=== PATIENT | female | born 1945 | race Caucasian/White ===

== ENCOUNTER → 2018-08-02 07:53 | Outpatient (CLI) | payer MEDICARE, OTHER, SELFPAY ==
--- NOTE | 2018-08-02 | DI.US.S_ITS ---
PROCEDURE: US CAROTID DOPPLER BI INDICATIONS: SHORTNESS OF BREATH/SYNCOPE/DYSPNEA TECHNIQUE: Color and pulse Doppler interrogation was performed of both carotid systems, with image documentation and velocity measurements. COMPARISON: None. FINDINGS: Stenosis calculations are based on SRU (Society of Radiologists in Ultrasound) criteria. Right side: Brachial blood pressure: 166/85 mm Hg. Common carotid artery peak systolic velocity: 64 cm/sec. Internal carotid artery peak systolic velocity: 109 cm/sec. Internal carotid artery end diastolic velocity: 42 cm/sec. External carotid artery peak systolic velocity: 110 cm/sec. ICA/CCA peak systolic ratio: 1.7. Berman scale imaging description: Mild scattered plaque. Percent internal carotid artery stenosis: Less than 50% stenosis. Vertebral artery: Flow direction is antegrade. Left side: Brachial blood pressure: 149/88 mm Hg. Common carotid artery peak systolic velocity: 93 cm/sec. Internal carotid artery peak systolic velocity: 82 cm/sec. Internal carotid artery end diastolic velocity: 38 cm/sec. External carotid artery peak systolic velocity: 86 cm/sec. ICA/CCA peak systolic ratio: 0.9. Berman scale imaging description: Mild scattered plaque. Percent internal carotid artery stenosis: Less than 50%. Vertebral artery: Flow direction is antegrade. IMPRESSION: Less than 50% bilateral internal carotid artery stenosis. Dictated by: Korey Torres RRA Interpreted: Taylor Mercado MD on 08/02/2018 at 8:43 Approved by: Taylor Mercado MD, PhD on 08/02/2018 at 9:26
--- NOTE | 2018-08-02 | DI.ECHO.S_ITS ---
[facility] +---------+ : : [address] : [place] : : : : [id number] : : : : Phone: [phone] Echocardiogram Report + + :Name: MAGY CLAROS Study Date: 08/02/2018 Height: 64 in : :[facility] Exam Location: IS Weight: 187 lb : : Gender: Female BSA: 1.9 m2 : :: 1945 Age: 72 yrs BP: 149/80 mmHg: :Reason For Study: SOB,SYNCOPE, DYSPNEA : : Performed By: Danielle Mead : :Referring: JAYA MKCEON : + + Interpretation Summary Normal sinus rhythm. Normal LV size; mild concentric LVH; normal wall motion and LV systolic function. EF is 55-60%. Stage I diastolic dysfunction. Mild LA enlargement; otherwise normal chamber sizes. Aortic sclerosis without stenosis. Otherwise no signifcant valvular abnormalities. No prior study available for comparison. Procedure: A two-dimensional transthoracic echocardiogram with color flow and Doppler was performed. The study quality was technically adequate. There is no prior echocardiogram noted for this patient. The patient was in normal sinus rhythm during the exam. Left Ventricle: There is mild concentric left ventricular hypertrophy. The left ventricle is normal in size. The left ventricular ejection fraction is normal. The ejection fraction is estimated to be 55-60%. There are no focal wall motion abnormalities. Diastolic parameters suggest a relaxation abnormality of the left ventricle, consistent with probable normal filling pressures. Right Ventricle: The right ventricle is normal in size and function. Atria: The left atrium is mildly dilated. The right atrium is normal in size. There is no Doppler evidence for an interatrial shunt. Mitral Valve: The mitral valve leaflets appear mildly thickened, but open well. There is mild mitral regurgitation. Aortic Valve: The aortic valve is trileaflet. There is mild aortic valve sclerosis. The aortic valve opens well. No aortic regurgitation is present. Tricuspid Valve: The tricuspid valve is normal. There is mild tricuspid regurgitation. The right ventricular systolic pressure is estimated to be at least 22 mmHg based on an estimated right atrial pressure of 3 mm Hg. Pulmonic Valve: The pulmonic valve is not well visualized. There is a trace or physiologic amount of pulmonic regurgitation. Great Vessels: The aortic root is normal size. The ascending aorta is at the upper limits of normal in size. The aortic arch is at the upper limits of normal in size. The pulmonary is not well visualized. The IVC is of normal diameter and collapses greater than 50% with a sniff. This suggests a low right atrial pressure of 3 mm Hg. Pericardium/ Pleura There is no pericardial effusion. There is no pleural effusion. MMode/2D Measurements & Calculations LVIDd: 4.3 cm LVOT diam: 1.9 cm LVIDs: 2.8 cm Ao root diam: 3.4 cm FS: 36.6 % asc Aorta Diam: 3.6 cm EPSS: 0.42 cm Ao Arch Diam (Prox Trans): 3.2 cm IVSd: 1.2 cm LVPWd: 1.2 cm LV hutson. diameter/BSA (cm/m^2): 2.3 LV sys. diameter/BSA (cm/m^2): 1.4 LA A2 area: 20.8 cm2 RA long axis: 4.7 cm LA A4 area: 24.7 cm2 RA area: 11.1 cm2 LA length (vol): 6.0 cm RA vol: 21.9 ml LA vol: 72.5 ml RA : 11.5 ml/m2 LA vol index: 38.2 ml/m2 IVC diam: 1.8 cm RVD1 (basal): 3.2 cm RVD2 (mid): 1.9 cm Doppler Measurements & Calculations Ao V2 max: 140.7 cm/sec LVOT Max Juan David: 103.1 cm/sec Ao V2 mean: 87.7 cm/sec LV V1 max P.3 mmHg Ao max P.9 mmHg LV V1 VTI: 22.8 cm Ao mean P.6 mmHg LETY(I,D): 2.2 cm2 Ao V2 VTI: 29.7 cm LETY(V,D): 2.1 cm2 sev ratio: 0.77 LETY indexed to BSA (cm^2/m^2): 1.2 MV E max juan david: 58.2 cm/sec TR max juan david: 215.1 cm/sec MV A max juan david: 86.2 cm/sec TR max P.5 mmHg MV E/A: 0.68 PA V2 max: 71.5 cm/sec Med Peak E' Juan David: 5.4 cm/sec PA V2 mean: 48.5 cm/sec E/E' med: 10.8 PA mean P.1 mmHg Lat Peak E' Juan David: 6.1 cm/sec PA pr(Accel): 31.6 mmHg E/E' lat: 9.5 E/e' average: 10.2 MV dec time: 0.28 sec MV P1/2t: 77.5 msec MV 2t max juan david: 55.8 cm/sec MVA(t): 2.8 cm2 Reading Physician:07:44 PM
== END ==
PROVIDERS: PCP Internal Medicine; Visit Provider Internal Medicine
DX: I08.1 Rheumatic disorders of both mitral and tricuspid valves (principal); I65.23 Occlusion and stenosis of bilateral carotid arteries; R06.02 Shortness of breath; R55 Syncope and collapse; R06.00 Dyspnea, unspecified
CPT/HCPCS: 93306; 93880

== ENCOUNTER → 2018-08-20 08:17 | Outpatient (CLI) | payer MEDICARE, OTHER, SELFPAY ==
--- NOTE | 2018-08-20 08:20 | DI.NM.S_ITS ---
PROCEDURE: NM BEST PERF SPECT R&S PHARM Rest and pharmacological stress myocardial perfusion SPECT with gated imaging and ejection fraction RADIOPHARMACEUTICAL: 22.8 mCi Tc-99m tetrafosmin IV at rest and 26.5 mCi Tc-99m tetrafosmin IV at peak effect of pharmacological stress. Fix-ljd-lcfotdfu was performed. INDICATIONS: SHORTNESS OF BREATH WITH EXERTION/SYNCOPE TECHNIQUE: Radiopharmaceutical was injected at peak stress test, and also at rest. SPECT images were obtained. SPECT myocardial perfusion images were displayed in short axis, horizontal long axis, and vertical long axis views. Gated images were reviewed using Interhyp software. COMPARISON: None. CARDIAC STRESS: A pharmacologic stress test was performed under the supervision of an attending staff, using an infusion of lexiscan 0.4mg IV X1. Hemodynamic data: There is normal blood pressure and heart rate response to pharmacologic stress. Symptoms: The patient denied anginal chest pain. Aminophylline: none EKG: Resting ECG shows sinus rhythm with no significant ST-T changes. No diagnostic changes of ischemia with lexiscan; frequent PVCs present. FINDINGS: Raw data: There is good myocardial uptake of radiotracer. No significant motion artifacts. Xtiz-ks-iwpkt ratio is 0.29 (normal is less than 0.38 for tetrafosmin tracer). Left ventricle function: Gated images demonstrate normal left ventricular wall thickening. No segmental wall motion abnormalities. No transient ischemic dilation; TID is 0.97 (normal less than 1.3). Left ventricle resting end diastolic volume is 86 mL. Left ventricle stress ejection fraction is 83%; normal range is above 45%. Myocardial perfusion: There is normal distribution of activity in the right and left ventricular myocardium. No fixed or reversible perfusion defects. IMPRESSION: low risk, normal pharmaceutical nuclear stress test 1) Normal perfusion images, with no evidence of ischemia or infarction. 2) Normal left ventricular size, wall motion, and systolic function (EF post stress 83%). 3) No ECG evidence of ischemia. Frequent PVCs during the study. 4) No angina during the study. 5) No prior nuclear stress test available for comparison. Dictated by: Jarred Aparicio MD on 08/24/2018 at 12:59 Approved by: Jarred Aparicio MD on 08/24/2018 at 13:02
--- NOTE | 2018-08-20 09:26 | P.PCN_ITS ---
Cardiac Stress Test Report Referral & Results Date Patient Seen: 08/20/18 Requesting provider: Donnie Graham Indication: Shortness of breath Rest ECG: Unremarkable Procedure Note: After both written and verbal informed consent the patient had an IV started by the diagnostic imaging RN and then was hooked up to the treadmill monitoring system. The patient was placed on the treadmill at 1 mile an hour with no elevation and was then injected with the Ro scan material. The Cardiolite was then immediately administered. The patient spent an additional 2-3 minutes on the treadmill before being returned to the [facility] in the supine position. The patient had a normal response to all infused materials. Occasional PVCs were identified Impression: Dysrhythmias above, otherwise normal response team materials. Please see perfusion imaging report for details regarding possible ischemia Please note: Actual ECG tracings can be found in the PACS system.
== END ==
PROVIDERS: PCP Internal Medicine; Visit Provider Internal Medicine
DX: I49.3 Ventricular premature depolarization (principal); R06.02 Shortness of breath; R55 Syncope and collapse
CPT/HCPCS: 78452; 93016; 93017; 93018; A9502; J2785

== ENCOUNTER → 2020-07-11 09:30 | Outpatient (CLI) | payer MEDICARE, OTHER, SELFPAY ==
[2020-07-11 11:14] LABS: Alanine Aminotransferase 28 IU/L (<35); Albumin 4.5 g/dL (3.5-5.0); Albumin Globulin Ratio 1.6 (1.0-2.8); Alkaline Phosphatase 88 U/L (38-126); Aspartate Aminotransferase 32 IU/L (14-36); BUN Creatinine Ratio 23.8 (6-22); Bilirubin Total 0.5 mg/dL (0.2-1.3); Blood Urea Nitrogen 19 mg/dL (7-17); Calcium 9.8 mg/dL (8.4-10.2); Carbon Dioxide 27 mmol/L (22-32); Chloride 102 mmol/L (98-107); Estimated Glomerular Filt Rate > 60.0 mL/min (>60); Globulin 2.8 g/dL (1.7-4.1); Glucose 113 mg/dL (80-110); HEMOLYSIS < 15 (0-50); Sodium 138 mmol/L (137-145); Total Protein 7.3 g/dL (6.3-8.2)
[2020-07-11 11:15] LABS: Creatinine Urine Random 48.7 mg/dL
[2020-07-11 11:20] LABS: Microalbumi Creatinin Ratio Ur 18.4 ug/mg CR (<30); Microalbumin Urine Random 0.9 mg/dL (0-1.6)
[2020-07-11 11:31] LABS: Vitamin D 25 Hydroxy (D3) 92.3 ng/mL (30.0-100.0)
[2020-07-12 16:48] LABS: Hep C Virus Ab w/Reflex Quant NEGATIVE s/c (NEGATIVE)
== END ==
PROVIDERS: PCP Family Medicine; Referring Provider Family Medicine; Visit Provider Family Medicine
DX: Z11.59 Encounter for screening for other viral diseases (principal); I10 Essential (primary) hypertension
CPT/HCPCS: 36415; 80053; 82043; 82306; 82570; 86803

== ENCOUNTER → 2020-12-04 13:53 | Outpatient (CLI) | payer MEDICARE, OTHER, SELFPAY ==
--- NOTE | 2020-12-04 14:00 | DI.RAD.S_ITS ---
PROCEDURE: XR FOOT LT 2V INDICATIONS: BI FOOT SWELLING/BURSITIS TECHNIQUE: 2 views of the foot were acquired. COMPARISON: None. FINDINGS: Bones: No fractures or dislocations. No suspicious bony lesions. Mild 1st MTP and diffuse interphalangeal joint space narrowing with periarticular osteophyte formation. Soft tissues: No tibiotalar joint effusion. Achilles tendon appears normal. IMPRESSION: Mild 1st MTP and diffuse interphalangeal joint degeneration. Although no bony erosions are identified, plain film radiography is relatively insensitive in the acute phases of osteomyelitis and may not demonstrate radiographic changes for 15 days. If acute osteomyelitis is of clinical concern, nuclear medicine regional bone scan or MRI is recommended. Dictated by: Korey Torres [facility] Interpreted: Kary Alvarado MD on 12/04/2020 at 16:49 Approved by: Kary Alvarado M.D. on 12/04/2020 at 17:06
--- NOTE | 2020-12-04 14:00 | DI.RAD.S_ITS ---
PROCEDURE: XR FOOT RT 2V INDICATIONS: BI FOOT SWELLING/BURSITIS TECHNIQUE: 2 views of the foot were acquired. COMPARISON: None. FINDINGS: Bones: No fractures or dislocations. No suspicious bony lesions. Mild 1st MTP and diffuse interphalangeal joint space narrowing with periarticular osteophyte formation. Soft tissues: No tibiotalar joint effusion. Achilles tendon appears normal. IMPRESSION: 1. Mild 1st MTP and diffuse interphalangeal joint degeneration. 2 point Although no bony erosions are identified, plain film radiography is relatively insensitive in the acute phases of osteomyelitis and may not demonstrate radiographic changes for 15 days. If acute osteomyelitis is of clinical concern, nuclear medicine regional bone scan or MRI is recommended. Dictated by: Korey Torres [facility] Interpreted: Kary Alvarado MD on 12/04/2020 at 16:50 Approved by: Kary Alvarado M.D. on 12/04/2020 at 17:06
== END ==
PROVIDERS: PCP Physician Assistant; Referring Provider Physician Assistant; Visit Provider Physician Assistant
DX: M71.5 Other bursitis, not elsewhere classified (principal); R22.43 Localized swelling, mass and lump, lower limb, bilateral; M19.072 Primary osteoarthritis, left ankle and foot; M19.071 Primary osteoarthritis, right ankle and foot
CPT/HCPCS: 73620

== ENCOUNTER → 2020-12-28 11:51 | Outpatient (CLI) | payer MEDICARE, OTHER, SELFPAY ==
[2020-12-28] MEDS: COVID-19 VACC, Ad26(JANSSEN)/PF 0.5 ML IM (11:58)
== END ==
PROVIDERS: PCP Physician Assistant; Visit Provider Internal Medicine
DX: Z23 Encounter for immunization (principal)
CPT/HCPCS: 0031A; 91303

== ENCOUNTER → 2021-12-05 14:56 | Outpatient (ROUT) | payer MEDICARE, OTHER, SELFPAY ==
[2021-12-05 15:09] LABS: Add Manual Diff / Slide Review NO; Basophils Absolute Auto 0 /uL (0-100); Basophils Percent Auto 0.5 % (0-2); Eosinophils Absolute Auto 100 /uL (0-450); Eosinophils Percent Auto 3.3 % (2-4); Hematocrit 40.9 % (36-46); Hemoglobin 13.5 g/dL (12.0-16.0); Lymphocytes Absolute Auto 1800 /uL (1100-4500); Lymphocytes Percent Auto 44.4 % (25-40); Mean Corpuscular HGB Conc 32.9 % (30-36); Mean Corpuscular Hemoglobin 27.7 PG (26-34); Monocytes Absolute Auto 200 /uL (0-900); Monocytes Percent Auto 5.5 % (3-14); Neutrophils Absolute Auto 1900 /uL (1500-7000); Neutrophils Percent Auto 46.3 % (50-75); Platelet Count 141 X10^3/uL (150-400); Red Blood Cell Count 4.86 X10^6/uL (4.0-5.2); Red Cell Distribution Width 15.2 % (11.6-14.8); White Blood Cell Count 4.1 X10^3/uL (4.5-11.0)
[2021-12-05 15:12] LABS: Hemoglobin A1C% w Est Avg Glu 5.8 % (4.0-6.0)
[2021-12-05 15:19] LABS: Alanine Aminotransferase 25 IU/L (<35); Albumin 4.7 g/dL (3.5-5.0); Albumin Globulin Ratio 1.8 (1.0-2.8); Alkaline Phosphatase 62 U/L (38-126); Aspartate Aminotransferase 38 IU/L (14-36); BUN Creatinine Ratio 31.1 (6-22); Bilirubin Total 0.6 mg/dL (0.2-1.3); Blood Urea Nitrogen 19 mg/dL (7-17); Calcium 10.1 mg/dL (8.4-10.2); Carbon Dioxide 28 mmol/L (22-32); Chloride 104 mmol/L (98-107); Cholesterol 211 mg/dL (140-199); Estimated Glomerular Filt Rate > 60.0 mL/min (>60); Globulin 2.6 g/dL (1.7-4.1); Glucose 113 mg/dL (80-110); HDL Cholesterol 32 mg/dL (40-60); HEMOLYSIS 31 (0-50); LDL Cholesterol Calculated 143 mg/dL (<100); Potassium 4.4 mmol/L (3.4-5.1); Sodium 139 mmol/L (137-145); Total Protein 7.3 g/dL (6.3-8.2); Triglycerides 178 mg/dL (35-150); Uric Acid 6.3 mg/dL (2.5-6.2)
[2021-12-05 15:35] LABS: Vitamin D 25 Hydroxy (D3) 83.6 ng/mL (30.0-100.0)
[2021-12-05 15:49] LABS: Thyroid Stimulating Hormone 1.74 uIU/mL (0.47-4.68)
== END ==
PROVIDERS: PCP Physician Assistant; Visit Provider Physician Assistant
DX: E11.9 Type 2 diabetes mellitus without complications (principal); I10 Essential (primary) hypertension; M10.00 Idiopathic gout, unspecified site; E78.5 Hyperlipidemia, unspecified; R53.83 Other fatigue; E03.9 Hypothyroidism, unspecified; E55.9 Vitamin D deficiency, unspecified
CPT/HCPCS: 80053; 80061; 82306; 83036; 84443; 84550; 85025

== ENCOUNTER → 2021-12-10 11:19 | Outpatient (CLI) | payer MEDICARE, OTHER, SELFPAY ==
--- NOTE | 2021-12-10 | DI.MG.S_ITS ---
BILATERAL DIGITAL SCREENING MAMMOGRAM 3D/2D WITH CAD: 12/10/2021 CLINICAL: Routine screening. Family history of breast cancer. Comparison is made to exams dated: 12/02/2016 mammogram, 09/20/2015 mammogram, and 08/18/2013 mammogram - [facility]. The tissue of both breasts is predominantly fatty. Current study was also evaluated with a Computer Aided Detection (CAD) system. No significant masses, calcifications, or other findings are seen in either breast. There has been no significant interval change. IMPRESSION: NEGATIVE There is no mammographic evidence of malignancy. A 1 year screening mammogram is recommended. This exam was interpreted at Station ID: [id number]. NOTE: For mammograms, a report in lay terms will be sent to the patient. Approximately 15% of breast malignancies will not be visualized mammographically. In the management of a palpable breast mass, a negative mammogram must not discourage biopsy of a clinically suspicious lesion. Electronically Signed By: Fredis jung/clifford:12/10/2021 13:34:18 copy to: THERESA SANTACRUZ letter sent: Normal Exam ACR BI-RADS Category 1: Negative [id number]
== END ==
PROVIDERS: PCP Physician Assistant; Referring Provider Physician Assistant; Visit Provider Physician Assistant
DX: Z12.31 Encounter for screening mammogram for malignant neoplasm of breast (principal); Z80.3 Family history of malignant neoplasm of breast
CPT/HCPCS: 77063; 77067

== ENCOUNTER → 2023-09-25 08:40 | Outpatient (CLI) | payer MEDICARE, OTHER, SELFPAY ==
[2023-09-25 09:58] LABS: Add Manual Diff / Slide Review NO; Basophils Absolute Auto 0 /uL (0-100); Basophils Percent Auto 0.5 % (0-2); Eosinophils Absolute Auto 0 /uL (0-450); Eosinophils Percent Auto 1.1 % (2-4); Hematocrit 37.5 % (36-46); Hemoglobin 12.4 g/dL (12.0-16.0); Lymphocytes Absolute Auto 1100 /uL (1100-4500); Lymphocytes Percent Auto 43.6 % (25-40); Mean Corpuscular Hemoglobin 25.9 PG (26-34); Mean Corpuscular Volume 78.5 fL (80-100); Monocytes Absolute Auto 100 /uL (0-900); Monocytes Percent Auto 4.8 % (3-14); Neutrophils Absolute Auto 1300 /uL (1500-7000); Platelet Count 92 X10^3/uL (150-400); Red Blood Cell Count 4.79 X10^6/uL (4.0-5.2); Red Cell Distribution Width 16.6 % (11.6-14.8); White Blood Cell Count 2.5 X10^3/uL (4.5-11.0)
[2023-09-25 10:24] LABS: Alanine Aminotransferase 23 IU/L (<35); Albumin 4.2 g/dL (3.5-5.0); Albumin Globulin Ratio 1.6 (1.0-2.8); Alkaline Phosphatase 90 U/L (38-126); Aspartate Aminotransferase 36 IU/L (14-36); BUN Creatinine Ratio 27.4 (6-22); Bilirubin Total 0.6 mg/dL (0.2-1.3); Blood Urea Nitrogen 20 mg/dL (7-17); Calcium 10.2 mg/dL (8.4-10.2); Carbon Dioxide 30 mmol/L (22-32); Chloride 102 mmol/L (98-107); Cholesterol 197 mg/dL (140-199); Estimated Glomerular Filt Rate > 60 mL/min (>60); Globulin 2.6 g/dL (1.7-4.1); Glucose 147 mg/dL (80-110); HDL Cholesterol 25 mg/dL (40-60); HEMOLYSIS < 15 (0-50); LDL Cholesterol Calculated 152 mg/dL (<100); Potassium 4.9 mmol/L (3.4-5.1); Sodium 140 mmol/L (137-145); Total Protein 6.8 g/dL (6.3-8.2); Triglycerides 102 mg/dL (35-150)
[2023-09-25 10:41] LABS: Vitamin D 25 Hydroxy (D3) 102 ng/mL (30.0-100.0)
[2023-09-25 10:54] LABS: Thyroid Stimulating Hormone 2.37 uIU/mL (0.47-4.68)
== END ==
PROVIDERS: PCP Student in an Organized Health Care Education/Training Program; Referring Provider Student in an Organized Health Care Education/Training Program; Visit Provider Student in an Organized Health Care Education/Training Program
DX: I10 Essential (primary) hypertension (principal); E55.9 Vitamin D deficiency, unspecified; E03.9 Hypothyroidism, unspecified; E78.5 Hyperlipidemia, unspecified
CPT/HCPCS: 36415; 80053; 80061; 82306; 84443; 85025

== ENCOUNTER → 2024-07-11 16:15 | Outpatient (CLI) | payer MEDICARE, OTHER, SELFPAY ==
--- NOTE | 2024-07-11 16:18 | DI.RAD.S_ITS ---
PROCEDURE: XR HAND RT 2V INDICATIONS: PAIN SWELLING IN HANDS TECHNIQUE: 2 views of the hand acquired. COMPARISON: None. FINDINGS: Bones: No acute fractures or dislocations. Carpal bones are normally aligned. No suspicious bony lesions. Generalized osteopenia. Multifocal degenerative changes are seen in the interphalangeal joints of the fingers and at the 1st carpometacarpal joint, triscaphe joint, and radiocarpal articulations. Soft tissues: No suspicious soft tissue calcifications. No focal nodular soft tissue swelling. IMPRESSION: Moderate to severe osteoarthrosis, most notably at the 1st carpometacarpal joint. Approved by: Demetrio Hodgson M.D. on 07/11/2024 at 21:24
--- NOTE | 2024-07-11 16:18 | DI.RAD.S_ITS ---
PROCEDURE: XR HAND LT 2V INDICATIONS: PAIN SWELLING IN HANDS TECHNIQUE: 2 views of the hand acquired. COMPARISON: None. FINDINGS: Bones: No acute fractures or dislocations. Carpal bones are normally aligned. No suspicious bony lesions. Generalized osteopenia. Multifocal joint space narrowing throughout the interphalangeal joints of the fingers and at the 1st carpometacarpal, triscaphe, and radiocarpal joints. Findings are moderate to severe at the 1st carpometacarpal joint and multiple distal interphalangeal joints. Soft tissues: No suspicious soft tissue calcifications. No nodular soft tissue swelling identified. IMPRESSION: Moderate to severe osteoarthrosis most notably at the 1st carpometacarpal joint. Approved by: Demetrio Hodgson M.D. on 07/11/2024 at 21:23
== END ==
LOC: RAD 16:16
PROVIDERS: PCP Student in an Organized Health Care Education/Training Program; Referring Provider Student in an Organized Health Care Education/Training Program; Visit Provider Student in an Organized Health Care Education/Training Program
DX: M18.0 Bilateral primary osteoarthritis of first carpometacarpal joints (principal); M19.042 Primary osteoarthritis, left hand; M19.041 Primary osteoarthritis, right hand; M79.642 Pain in left hand; R22.32 Localized swelling, mass and lump, left upper limb
CPT/HCPCS: 73120

== ENCOUNTER → 2024-08-19 11:26 | Outpatient (CLI) | payer MEDICARE, OTHER, SELFPAY ==
--- NOTE | 2024-08-19 11:28 | DI.RAD.S_ITS ---
PROCEDURE: XR DEXA AXIAL SKELETON INDICATIONS: Age-related osteoporosis without current pathologi COMPARISON: None. FINDINGS: Lumbar Spine: Bone mineral density 0.938 g/cm2, T score -0.7. Please note that the L3 vertebral body T-score is -1.3. Left Hip: Bone mineral density 0.734 g/cm2, T score -1.7 Left Femoral Neck: Bone mineral density 0.623 g/cm2, T score -2.0 Right Hip: Bone mineral density 0.740 g/cm2, T score -1.7 Right Femoral Neck: Bone mineral density 0.630 g/cm2, T score -2.0 Fracture Risk Calculation (when applicable): 10-year fracture risk of a major osteoporotic fracture 29 percent and of a hip fracture 10 percent. (T score greater or equal to -1.0 to: NORMAL) (T score from -1.1 to -2.4: OSTEOPENIA) (T score less than or equal to -2.5: OSTEOPOROSIS) IMPRESSION: 1. Normal bone density of the lumbar spine, although the L3 vertebral body is osteopenic. 2. Osteopenia of the left hip and femoral neck. 3. Osteopenia of the right hip and femoral neck. Follow-up guidelines as follows: Osteoporosis: Consider a repeat DEXA and Vertebral Fracture Assessment (VFA) exam in 2 years or sooner if medically necessary, to reassess this patient's status. Osteopenia: Consider a repeat DEXA in 2-3 years to reassess this patient's status, or if there is a new clinical indication. Normal: Consider a repeat DEXA in 5 years or sooner, or if there is a new clinical indication. All treatment decisions require clinical judgment and consideration of individual patient factors, including patient preferences, comorbidities, previous drug use, risk factors not captured in the FRAX model (e.g., frailty, falls, vitamin D deficiency, increased bone turnover, interval significant decline in bone density ) and possible under- or over-estimation of fracture risk by FRAX. In addition, the NOF Guide recommends that FDA-approved medical therapies be considered in postmenopausal women and men age >= 50 years with a: * Hip or vertebral (clinical or morphometric) fracture * T-score of <=-2.5 at the spine or hip * Ten-year fracture probability by FRAX of >= 3% for hip fracture or >=20% for major osteoporotic fracture. People with diagnosed cases of osteoporosis or at high risk for fracture should have regular bone mineral density tests. For patients eligible for Medicare, routine testing is allowed once every 2 years. The testing frequency can be increased to one year for patients who have rapidly progressing disease, those who are receiving or discontinuing medical therapy to restore bone mass, or have additional risk factors. Dictated by: Jed Chakraborty M.D. on 08/19/2024 at 14:24 Approved by: Jed Chakraborty M.D. on 08/19/2024 at 14:27
--- NOTE | 2024-08-19 12:20 | EKG_ITS ---
[address] [address] Test Date: 2024-08-19 Pat Name: Nirali Beltre Department: [facility] Room: Gender: Female [employer]: ANNMARIE : 1945 Requested By: Order Number: [id number] Reading MD: Gilbert He Measurements Intervals [place] Rate: 70 P: 22 PA: 200 QRS: -1 QRSD: 86 T: 47 QT: 390 QTc: 421 Interpretive Statements Normal sinus rhythm Electronically Signed On 08-23-2024 18:48:53 PST by Gilbert He
== END ==
PROVIDERS: PCP Student in an Organized Health Care Education/Training Program; Referring Provider Student in an Organized Health Care Education/Training Program; Visit Provider Student in an Organized Health Care Education/Training Program
DX: M81.0 Age-related osteoporosis without current pathological fracture (principal); I35.0 Nonrheumatic aortic (valve) stenosis
CPT/HCPCS: 77080; 93005

== ENCOUNTER → 2024-09-23 09:19 | Outpatient (CLI) | payer MEDICARE, OTHER, SELFPAY ==
--- NOTE | 2024-09-23 09:23 | DI.ECHO.S_ITS ---
[facility]---------+ [facility] : : [address] : : [place] : : [id number] : : Phone: [phone] Echocardiogram Report + + :Name: MAGY CLAROS Study Date: 09/23/2024 Height: 63 in : :[facility] ReadingLocation: Weight: 161 lb : : Gender: Female BSA: 1.8 m2 : :: 1945 Age: 78 yrs BP: 158/70 mmHg: :Reason For Study: AORTIC VALVE STENOSIS : :Ordering Physician: MARTA TAY Performed By: Agusto Banuelos : :Referring: UNSPECIFIED : + + Interpretation Summary The ejection fraction is estimated to be 60-65%. Grade II diastolic dysfunction. The right ventricle is normal in size and function. The right ventricular systolic pressure is estimated to be at least 40 mmHg based on an estimated right atrial pressure of 3 mm Hg. The left atrium is mildly dilated. There is mild mitral regurgitation. There is mild tricuspid regurgitation. Procedure: A two-dimensional transthoracic echocardiogram with color flow and Doppler was performed. The study quality was technically good. Comparison is made with the echocardiogram of 08/02/2018. The patient was in normal sinus rhythm during the exam. Left Ventricle: The left ventricle is normal in size. There is normal left ventricular wall thickness. There is no ventricular septal defect visualized. The ejection fraction is estimated to be 60-65%. There are no focal wall motion abnormalities. Grade II diastolic dysfunction. Right Ventricle: The right ventricle is normal in size and function. Atria: The left atrium is mildly dilated. Right atrial size is normal. There is no Doppler evidence for an atrial septal defect. Mitral Valve: The mitral valve leaflets appear mildly thickened, but open well. The mitral valve leaflets appear to open well. There is mild mitral regurgitation. Aortic Valve: The aortic valve is trileaflet. The aortic valve opens well. There is mild aortic valve sclerosis. There is no hemodynamically significant valvular aortic stenosis. There is trace aortic regurgitation. Tricuspid Valve: The tricuspid valve is normal in structure and function. There is mild tricuspid regurgitation. The right ventricular systolic pressure is estimated to be at least 40 mmHg based on an estimated right atrial pressure of 3 mm Hg. Pulmonic Valve: The pulmonic valve is not well visualized. There is no pulmonic valvular regurgitation. Great Vessels: The aortic root is normal size. The dimensions of the ascending aorta are normal. The pulmonary artery is normal size. The IVC is of normal diameter and collapses greater than 50% with a sniff. This suggests a low right atrial pressure of 3 mm Hg. Pericardium/ Pleura There is no pericardial effusion. There is no pleural effusion. MMode/2D Measurements & Calculations LVIDd: 4.3 cm LVOT diam: 2.0 cm LVIDs: 3.0 cm Ao root diam: 3.2 cm FS: 30.7 % asc Aorta Diam: 3.6 cm EPSS: 0.52 cm Ao Arch Diam (Prox Trans): 2.5 cm IVSd: 0.99 cm LVPWd: 1.0 cm LV hutson. diameter/BSA (cm/m^2): 2.4 LV sys. diameter/BSA (cm/m^2): 1.7 LA A2 area: 18.3 cm2 RA long axis: 3.5 cm LA A4 area: 24.6 cm2 RA area: 7.6 cm2 LA length (vol): 5.5 cm RA vol: 14.4 ml LA vol: 69.0 ml RA : 8.1 ml/m2 LA vol index: 39.1 ml/m2 IVC diam: 1.6 cm RVD1 (basal): 3.2 cm RVD2 (mid): 2.7 cm TAPSE: 2.5 cm Doppler Measurements & Calculations Ao V2 max: 188.3 cm/sec LVOT Max Juan David: 117.7 cm/sec Ao V2 mean: 130.8 cm/sec LV V1 max P.5 mmHg Ao max P.2 mmHg LV V1 VTI: 26.2 cm Ao mean P.8 mmHg LETY(I,D): 1.8 cm2 Ao V2 VTI: 44.3 cm LETY(V,D): 1.9 cm2 sev ratio: 0.59 LETY indexed to BSA (cm^2/m^2): 1.0 MV E max juan david: 79.6 cm/sec TR max juan david: 306.4 cm/sec MV A max juan david: 101.5 cm/sec TR max P.6 mmHg MV E/A: 0.78 PA V2 max: 81.1 cm/sec Med Peak E' Juan David: 5.8 cm/sec PA V2 mean: 54.4 cm/sec E/E' med: 13.8 PA mean P.4 mmHg Lat Peak E' Juan David: 6.1 cm/sec PA pr(Accel): 34.5 mmHg E/E' lat: 13.2 E/e' average: 13.5 MV dec time: 0.25 sec SVLVOT): 80.7 ml Reading Physician:TRAVIS
== END ==
PROVIDERS: PCP Student in an Organized Health Care Education/Training Program; Referring Provider Student in an Organized Health Care Education/Training Program; Visit Provider Student in an Organized Health Care Education/Training Program
DX: I08.3 Combined rheumatic disorders of mitral, aortic and tricuspid valves (principal)
CPT/HCPCS: 93306

== ENCOUNTER → 2025-09-05 10:31 | Outpatient (CLI) | payer MEDICARE, OTHER, SELFPAY ==
[2025-09-05 11:07] LABS: Add Manual Diff / Slide Review NO; Hematocrit 32.0 % (36-46); Hemoglobin 10.5 g/dL (12.0-16.0); Lymphocytes Absolute Auto 1200 /uL (1100-4500); Mean Corpuscular HGB Conc 32.8 % (30-36); Mean Corpuscular Hemoglobin 23.8 PG (26-34); Mean Corpuscular Volume 72.6 fL (80-100); Platelet Count 86 X10^3/uL (150-400)
[2025-09-05 11:12] LABS: Appearance Urine UA CLEAR; Bilirubin Urine UA NEGATIVE (NEGATIVE); Color Urine UA YELLOW; Glucose Urine UA NEGATIVE (Negative); Ketones Urine UA NEGATIVE (NEGATIVE); Leukocyte Esterase Urine UA 1+ (NEGATIVE); Nitrite Urine UA POSITIVE (Negative); Occult Blood Urine UA NEGATIVE (Negative); Protein Urine UA 1+ (Negative); Specific Gravity Urine UA 1.015 (1.000-1.035); Urobilinogen Urine UA 0.2 E.U./dL (0.2)
[2025-09-05 11:17] LABS: pH Urine UA 5.5 (4.5-8.0)
[2025-09-05 11:24] LABS: Culture Indicated Urine Specimen Cultured
[2025-09-05 11:28] LABS: Hemoglobin A1C% w Est Avg Glu 6.8 % (4.0-6.0)
[2025-09-05 11:37] LABS: Cholesterol 177 mg/dL (140-199); HDL Cholesterol 17 mg/dL (40-60); Triglycerides 186 mg/dL (35-150)
[2025-09-05 12:06] LABS: TSH w/ Reflex to FT4 2.58 uIU/mL (0.47-4.68)
[2025-09-05 18:17] LABS: Alanine Aminotransferase 18 IU/L (<35); Albumin 4.3 g/dL (3.5-5.0); Albumin Globulin Ratio 1.8 (1.0-2.8); Alkaline Phosphatase 124 U/L (38-126); Blood Urea Nitrogen 28 mg/dL (7-17); Calcium 9.4 mg/dL (8.4-10.2); Carbon Dioxide 24 mmol/L (22-32); Chloride 105 mmol/L (98-107); Estimated Glomerular Filt Rate 58 mL/min (>60); Globulin 2.4 g/dL (1.7-4.1); Glucose 139 mg/dL (70-99); HEMOLYSIS < 15 (0-50); Potassium 4.1 mmol/L (3.4-5.1); Sodium 139 mmol/L (137-145); Total Protein 6.7 g/dL (6.3-8.2)
== END ==
PROVIDERS: PCP Student in an Organized Health Care Education/Training Program; Referring Provider Student in an Organized Health Care Education/Training Program; Visit Provider Student in an Organized Health Care Education/Training Program
DX: E03.9 Hypothyroidism, unspecified (principal); Z13.1 Encounter for screening for diabetes mellitus; E55.9 Vitamin D deficiency, unspecified; E78.5 Hyperlipidemia, unspecified; G35.D Multiple sclerosis, unspecified; G25.81 Restless legs syndrome; I10 Essential (primary) hypertension; M81.0 Age-related osteoporosis without current pathological fracture; I35.0 Nonrheumatic aortic (valve) stenosis; R01.1 Cardiac murmur, unspecified; R06.02 Shortness of breath
CPT/HCPCS: 36415; 80053; 80061; 81001; 82533; 83036; 84443; 85025; 87077; 87086

== ENCOUNTER → 2025-09-26 10:37 | Outpatient (CLI) | payer MEDICARE, OTHER, SELFPAY ==
[2025-09-26 12:04] LABS: Add Manual Diff / Slide Review NO; Hematocrit 31.6 % (36-46); Hemoglobin 10.4 g/dL (12.0-16.0); Lymphocytes Absolute Auto 900 /uL (1100-4500); Mean Corpuscular HGB Conc 33.0 % (30-36); Mean Corpuscular Hemoglobin 23.8 PG (26-34); Mean Corpuscular Volume 72.2 fL (80-100); Platelet Count 82 X10^3/uL (150-400)
== END ==
PROVIDERS: PCP Student in an Organized Health Care Education/Training Program; Referring Provider Student in an Organized Health Care Education/Training Program; Visit Provider Student in an Organized Health Care Education/Training Program
DX: D61.818 Other pancytopenia (principal); D72.829 Elevated white blood cell count, unspecified; F32.A Depression, unspecified; I10 Essential (primary) hypertension; I35.0 Nonrheumatic aortic (valve) stenosis; L97.509 Non-pressure chronic ulcer of other part of unspecified foot with unspecified severity; R01.1 Cardiac murmur, unspecified; R06.02 Shortness of breath
CPT/HCPCS: 36415; 85025

== ENCOUNTER 2025-09-26 15:33 | Emergency (ER) | payer MEDICARE, OTHER, SELFPAY ==
[2025-09-26 16:07] VITALS: BP 173/78; PULSE 88; RESP 16; TEMP 36.1; O2SAT 99; BMI 27.4
--- NOTE | 2025-09-26 16:17 | DI.RAD.S_ITS ---
PROCEDURE: XR CHEST 1V INDICATIONS: Chest Pain TECHNIQUE: One view of the chest was acquired. COMPARISON: None. FINDINGS: Surgical changes and devices: None. Lungs and pleura: Lungs are clear. No pleural effusions or pneumothorax. Mediastinum: Mediastinal contours appear normal. Heart size is normal. Bones and chest wall: No suspicious bony lesions. Overlying soft tissues appear unremarkable. IMPRESSION: No acute cardiopulmonary abnormality is seen. Dictated by: Doug Faye M.D. on 09/26/2025 at 18:37 Approved by: Doug Faye M.D. on 09/26/2025 at 18:38
[2025-09-26 17:21] LABS: Alanine Aminotransferase 17 IU/L (<35); Albumin 4.4 g/dL (3.5-5.0); Albumin Globulin Ratio 1.6 (1.0-2.8); Alkaline Phosphatase 101 U/L (38-126); Blood Urea Nitrogen 17 mg/dL (7-17); Calcium 9.5 mg/dL (8.4-10.2); Carbon Dioxide 23 mmol/L (22-32); Chloride 108 mmol/L (98-107); Creatine Kinase 23 U/L (30-135); Estimated Glomerular Filt Rate > 60 mL/min (>60); Globulin 2.8 g/dL (1.7-4.1); Glucose 82 mg/dL (70-99); HEMOLYSIS 42 (0-50); Lipase 119 U/L (23-300); Magnesium 2.0 mg/dL (1.6-2.3); Potassium 4.7 mmol/L (3.4-5.1); Sodium 141 mmol/L (137-145); Total Protein 7.2 g/dL (6.3-8.2)
--- NOTE | 2025-09-26 17:32 | ED.WEAKNESS ---
HPI - Weakness General Chief complaint: Weakness Stated complaint: WBC 1.9, PC Ref Time Seen by Provider: 09/26/25 17:20 Source: patient Mode of arrival: Family Vehicle History of Present Illness HPI Narrative: This is a 79-year-old white female with a history of MS diabetes who was told by her primary care doctor to come to the emergency room because of a low blood count. Patient is now on chemotherapy patient is not on any biologics. Patient has no symptoms except for sores on her feet that have been there for a month. Related Data Home Medications ?Medication ?Instructions ?Recorded ?Confirmed levothyroxine 50 mcg tablet 50 mcg PO DAILY 06/29/20 07/16/20 simvastatin 10 mg tablet 10 mg PO DAILY 06/29/20 07/16/20 metformin 500 mg tablet 500 mg PO BID 07/16/20 07/16/20 Previous Rx's ?Medication ?Instructions ?Recorded losartan 50 mg-hydrochlorothiazide 1 tab PO DAILY #90 tabs 07/16/20 12.5 mg tablet Allergies Allergy/AdvReac Type Severity Reaction Status Date / Time acetaminophen (From Vicodin) Allergy Intermediate Vomiting Verified 09/26/25 16:06 hydrocodone (From Vicodin) Allergy Intermediate Vomiting Verified 09/26/25 16:06 Red yeast Allergy Intermediate States she Uncoded 09/26/25 16:06 can't take. Hives. Review of Systems Review of Systems Narrative: GENERAL: Denies chills, fatigue, malaise, fever, sweats. HEENT: Denies sinus pain, ear pain, sore throat, difficulty swallowing, dizziness. RESPIRATORY: Denies dyspnea, cough, wheezing, hemoptysis, sputum. CARDIOVASCULAR: Denies chest pain, palpitations, orthopnea, edema, GASTROINTESTINAL: Denies nausea, vomiting, abdominal pain, diarrhea, constipation, melena. : Denies dysuria, frequency, incontinence, hematuria, urinary retention. MUSCULOSKELETAL: denies weakness, joint pain, or bony pain SKIN: Denies rash, skin lesions, or other NEUROLOGIC: Denies weakness, headache, numbness, change in speech, confusion, seizures, incoordination. PSYCHIATRIC: No concerning psychosocial issues. 12 point review of systems is negative except for those stated above Patient History Medical History (Updated 09/26/25 @ 18:55 by Colby Palacio MD) Systolic murmur of aorta Medicare annual wellness visit, subsequent Neuropathy (~2012) Fractures (~2009) Foot pain (~2013) Ankle pain (~2012) Mumps (~1955) Chicken pox (~1949) Fibroids Abnormal Pap smear of cervix (~1972) Uterine cancer Multiple sclerosis (~1991) Hypertension Hyperlipidemia Hypothyroidism Diabetes mellitus type II, controlled Vitamin D deficiency Surgical History Anesthesia History of appendectomy (~1991) History of cholecystectomy (~1991) Hx of breast reduction, elective (~2009) H/O abdominoplasty (~2009) History of hysterectomy for cancer (~1972) H/O rotator cuff surgery (~2005) Family History Mother History of heart disease Father Cancer Brother OD (overdose of drug) Social History marital status: caregiver/support person: Yes occupational status: other (retired) special caridad needs: No water heater temp set < 120 deg: No working smoke detector in home: Yes fire extinguisher in home: Yes carbon monox detector in home: Yes firearms in home: Yes do you feel safe at home: Yes Smoking Status: Never smoker alcohol intake: current (1 glass of wine q3 weeks) during the past year weight has: remained stable well-balanced diet: daily or most days daily servings fruits/ve-4 caffeine: Yes eating out: 1-3 times/week Type(s) of exercise: regular exercise and advised to exercise at least 150 min/week (moderate intensity aerobic) frequency: 3-4 times per week duration: 30-45 minutes/day Smoking Status: Never smoker Alcohol type: wine Exam Narrative Exam Narrative: GENERAL: [] year old patient appears stated age. Well-developed patient, in mild distress. HEAD: Atraumatic. Normocephalic. EYES: Pupils equal round and reactive. Extraocular motions intact. No scleral icterus. No injection or drainage. ENT: Nose without bleeding, purulent drainage. Throat without erythema, tonsillar hypertrophy or exudate. Airway patent. NECK: Trachea midline. Non tender CARDIOVASCULAR: Regular rate and rhythm without murmurs, gallops, or rubs. RESPIRATORY: Clear to auscultation. Breath sounds equal bilaterally. No wheezes, rales, or rhonchi. GASTROINTESTINAL: Abdomen soft, non-tender, nondistended. EXTREMITIES: No edema or joint tenderness. BACK: Nontender without deformity or crepitance. No flank tenderness. NEURO: AOx3. SKIN: Patient has nonhealing sores on bilateral feet for approximately a month Initial Vital Signs Initial Vital Signs: Vital Signs Temperature 97.0 F L 09/26/25 16:07 Pulse Rate 88 09/26/25 16:07 Respiratory Rate 16 09/26/25 16:07 Blood Pressure 173/78 H 09/26/25 16:07 Pulse Oximetry 99 09/26/25 16:07 Oxygen Delivery Method Room Air 09/26/25 16:07 Course Orders Ordered: ED Orders 09/26/25 16:17 XR chest 1V Stat EKG-12 Lead Stat 09/26/25 17:00 Comprehensive Metabolic Panel Stat Lipase Stat Magnesium Stat NT-proBNP (BNP-Adult 18+) Stat Troponin & CK Cardiac Panel Stat 09/26/25 17:22 CBC with manual diff [Complete Blood Count MAN DIFF] Stat Discontinued Medications Aspirin (Aspirin 81 Mg Chew Tab) 324 mg PO NOW ONE Stop: 09/26/25 16:17 Vital Signs Vital signs: Vital Signs - 8 hr 09/26/25 16:07 Temperature 97.0 F L Pulse Rate 88 Respiratory Rate 16 Blood Pressure 173/78 H Pulse Oximetry 99 Oxygen Delivery Method Room Air MDM - Weakness Lab Data 09/26/25 17:22 09/26/25 17:00 Labs: Lab Results 09/26/25 09/26/25 09/26/25 Range/Units 17:00 17:22 Unknown WBC 2.2 L Cancelled (4.5-11.0) X10^3/uL RBC 4.35 Cancelled (4.0-5.2) X10^6/uL Hgb 10.4 L Cancelled (12.0-16.0) g/dL Hct 31.4 L Cancelled (36-46) % MCV 72.1 L Cancelled (80-100) fL MCH 23.9 L Cancelled (26-34) PG MCHC 33.1 Cancelled (30-36) % RDW 17.5 H Cancelled (11.6-14.8) % Plt Count 86 L Cancelled (150-400) X10^3/uL Neut % (Auto) Cancelled Lymph % (Auto) Cancelled [place] % (Auto) Cancelled Eos % (Auto) Cancelled Baso % (Auto) Cancelled Neut # (Auto) Cancelled Lymph # (Auto) Cancelled [place] # (Auto) Cancelled Eos # (Auto) Cancelled Baso # (Auto) Cancelled Total Counted 100 Seg Neutrophils % 39.0 (38-70) % Lymphocytes % (Manual) 58.0 H (25-45) % Monocytes % (Manual) 1.0 L (2-11) % Eosinophils % (Manual) 2.0 (2-4) % Neutrophils # (Manual) 858 L (9385-6980) /uL Platelet Estimate Adequate on smear Ovalocytes 2+ H Sodium 141 (137-145) mmol/L Potassium 4.7 (3.4-5.1) mmol/L Chloride 108 H (98-107) mmol/L Carbon Dioxide 23 (22-32) mmol/L BUN 17 (7-17) mg/dL Creatinine 0.76 (0.52-1.04) mg/dL Estimated GFR > 60 (>60) mL/min BUN/Creatinine Ratio 22.4 H (6-22) Glucose 82 (70-99) mg/dL Calcium 9.5 (8.4-10.2) mg/dL Magnesium 2.0 (1.6-2.3) mg/dL Total Bilirubin 0.4 (0.2-1.3) mg/dL AST 39 H (14-36) IU/L ALT 17 (<35) IU/L Alkaline Phosphatase 101 (38-126) U/L Total Creatine Kinase 23 L (30-135) U/L Troponin I < 0.012 (0.01-0.034) ng/mL NT-Pro-B Natriuret Pep 383 (<450) pg/mL Total Protein 7.2 (6.3-8.2) g/dL Albumin 4.4 (3.5-5.0) g/dL Globulin 2.8 (1.7-4.1) g/dL Albumin/Globulin Ratio 1.6 (1.0-2.8) Lipase 119 (23-300) U/L MDM Narrative Medical decision making narrative: The patient has CBC remarkable for a white count of 2.2 with a differential of 396 with the 8 lymphs 1 mono and 2 eosinophils hemoglobin was 10.4 and platelet count was 86,000 chemistry was within normal limits troponin was -12 lead EKG reveals sinus rhythm at 79 beats per minute normal axis no blocks no acute changes. In the emergency department I did speak with the oncologist as scheduled [place] who said he be glad to see the patient in follow-up. Patient will be discharged with neutropenic precautions and told to return to the emergency room immediately should they develop a temperature above 100.5 F. differential diagnosis pancytopenia myelodysplastic syndrome leukemia Discharge Plan Departure Patient Disposition: Home Clinical Impression: Pancytopenia Instructions: DI for Pancytopenia Prescriptions: No Action simvastatin 10 mg tablet 10 mg PO DAILY levothyroxine 50 mcg tablet 50 mcg PO DAILY losartan-hydrochlorothiazide 50-12.5 mg tablet 1 tab PO DAILY Qty: 90 3RF metformin 500 mg tablet 500 mg PO BID Referrals: Rui Brunson MD [Primary Care Provider, General Surgery] Isiah Wilkins MD [Non-Staff, Hematology & Oncology] - As soon as possible Stand Alone Forms: Patient Portal/API
[2025-09-26 17:33] LABS: NT-proBNP (BNP-Adult 18+) 383 pg/mL (<450); Troponin I < 0.012 ng/mL (0.01-0.034)
[2025-09-26 17:36] LABS: Hematocrit 31.4 % (36-46); Hemoglobin 10.4 g/dL (12.0-16.0); Mean Corpuscular HGB Conc 33.1 % (30-36); Mean Corpuscular Hemoglobin 23.9 PG (26-34); Mean Corpuscular Volume 72.1 fL (80-100); Platelet Count 86 X10^3/uL (150-400)
--- NOTE | 2025-09-26 17:51 | EKG_ITS ---
[facility] [address] [place] [address] Test Date: 2025-09-26 Pat Name: Nirali Beltre Department: [facility] Room: Gender: Female Transmission Inspector: : 1945 Requested By: Order Number: [id number] Reading MD: Ji Fierro MD Measurements Intervals [place] Rate: 79 P: 21 NH: 200 QRS: -7 QRSD: 74 T: 11 QT: 372 QTc: 426 Interpretive Statements Sinus rhythm with premature atrial complexes Minimal voltage criteria for LVH, may be normal variant ( R in aVL ) Electronically Signed On 09-27-2025 7:18:52 PST by Ji Fierro MD
[2025-09-26 18:02] VITALS: PULSE 75; O2SAT 86
[2025-09-26 18:04] VITALS: BP 149/85; PULSE 78; O2SAT 100
[2025-09-26 18:29] LABS: Eosinophils Percent Manual 2.0 % (2-4); Lymphocytes Percent Manual 58.0 % (25-45); Monocytes Percent Manual 1.0 % (2-11); Neutrophils Absolute Manual 858 /uL (3000-5900); Segmented Neutrophils Percent 39.0 % (38-70); Total Cells Counted 100
[2025-09-26 18:30] VITALS: BP 161/80; PULSE 82; O2SAT 99
[2025-09-26 18:31] LABS: Ovalocytes 2+
== END 2025-09-26 19:23 | disposition home or self-care (01) ==
PROVIDERS: Emergency Provider Emergency Medicine; PCP Student in an Organized Health Care Education/Training Program
DX: D61.818 Other pancytopenia (principal)
CPT/HCPCS: 36415; 71045; 80053; 82550; 83690; 83735; 83880; 84484; 85025; 93005; 93010; 99283; 99284